=== PATIENT | female | born 1970 | race Caucasian/White ===

== ENCOUNTER 2024-03-22 06:07 | Emergency (ER) | payer OTHER, SELFPAY ==
[2024-03-22 06:08] VITALS: BP 227/120
[2024-03-22 06:30] VITALS: BP 158/96; BMI 43.4
--- NOTE | 2024-03-22 06:33 | EDRN ---
Pt has not been feeling well x 1 week - watery eyes, stuffy head. Pt took tylenol which got rid of her headache. Pt has been taking Dayquil. Pt woke this morning with watery eyes and 'gunk coming out' of her eyes. Pt blew her nose and noted
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 Pt denies nose bleed - blood only on tissue which prompted pt's visit to ED. Pt did not take her bp this morning. Pt
last took her BP at bedtime and says it was 145/87. Pt denies headache now, cp, sob, abd pain, n/v, fever/chills/cough, urinary symptoms, weakness, dizziness.
--- NOTE | 2024-03-22 07:16 | ED.GENMED ---
History of Present Illness
General
Chief Complaint: Blood Pressure Problem
Time Seen by Provider: 03/22/24 07:09
Travel History
Have you had any contact with someone who has COVID-19?: No
Do you have any symptoms of coronavirus? Fever > 100 degrees, chills, cough, shortness of breath, sore throat, loss of taste or smell, muscle aches, or headache?: No
History of Present Illness
History of Present Illness:
53-year-old female with history of hypertension presents to the emergency department for evaluation of persistent facial pressure and nasal discharge over the past week. Her main concern is that she awoke today with copious amount of bloody
discharge from both naris. Denies any fevers, chills, or night sweats. Also notes bilateral eye redness left greater than right. No vision changes or eye pain. No chest pain, coughing, or shortness of breath. Has been using [id number]
DayQuil on a routine basis throughout the past week
Past History
Past History
ED Past Medical History: HTN
ED Past Surgical History: None
Social History
Tobacco: Non-smoker
Alcohol: None
Review of Systems
Review of Systems
Allergies reviewed?: Yes
All Other Systems: ROS reviewed and negative except as documented in HPI and ROS
Phy Exam
Physical Exam
Physical Exam:
GEN: Well appearing, NAD, WDWN
HEENT: Oral mucosa moist, no scleral icterus. Bilateral conjunctival injection, left greater than right, no purulent discharge, normal extraocular motion, no hyphema or hypopyon bilaterally. TMs clear without erythema bilaterally. Bilateral
maxillary sinus tenderness noted. Dried blood to Kiesselbach's plexus bilateral naris, no active bleeding
Cardiac: Regular rate and rhythm, no murmurs
Lung: No respiratory distress, no tachypnea, lungs clear to auscultation bilaterally
MSK: No gross deformity or injuries
Skin: Good color, no pallor or jaundice, no rashes
Neuro: AO x3, moves all extremities freely
Psych: Calm, cooperative
Course
Vital Signs
Initial and Last Documented VS:
Initial Vital Signs
Temp Pulse Resp BP Pulse Ox
98.4 F 66 22 227/120 100
03/22/24 06:08 03/22/24 06:08 03/22/24 06:08 03/22/24 06:08 03/22/24 06:08
Last Documented Vital Signs
Temp Pulse Resp BP Pulse Ox
98.3 F 68 14 167/94 99
03/22/24 07:26 03/22/24 07:26 03/22/24 07:26 03/22/24 07:26 03/22/24 07:26
MDM/Problems Addressed
MDM/Problems Addressed:
Patient with persistent URI symptoms and sinus pressure for 1 week. Given duration of symptoms we will treat empirically with antibiotics, topical antibiotics will be provided although likely etiology for conjunctivitis is viral. She is markedly
hypertensive on arrival, gradually downtrending in the emergency department without antihypertensives. She does have underlying hypertension and is on high doses of multiple medications, advised to avoid DayQuil and other similar decongestants
going forward as this likely contributed to her marked blood pressure elevation.
*Critical Care Note
Total Time (30-74mins, 75-104mins- exclusive of procedures): Not Applicable
ED Attending Note
-
Portions of this chart may have been created with voice recognition software.� Occasional wrong word or��sound alike� substitutions may have occurred due to the inherent limitations of voice recognition software.
Discharge Plan
Departure
Patient Disposition: Home (Routine Discharge)
Date of Disposition: 03/22/24
Time of Disposition: 07:20
Patient with high blood pressure during this ER visit?: Yes
Discharge Problem:
Sinusitis, acute, Acute conjunctivitis, bilateral
Instructions: Sinusitis, Adult ED
Prescriptions:
New
azithromycin [Zithromax] 250 mg tablet
250 mg PO DAILY Qty: 6 0RF
Rx Instructions:
500mg PO day 1 then 250mg po qd x 4d
polymyxin B sulf-trimethoprim 10,000 unit- 1 mg/mL drops
1 drp ophthalmic (eye) QID 5 Days Qty: 10 0RF
No Action
omeprazole 40 MG capsule,delayed release(DR/EC)
40 mg PO DAILY
metoprolol succinate 100 mg Tablet Extended Release 24 Hr
100 mg PO DAILY
aspirin 81 mg Tablet,Delayed Release (Dr/Ec)
81 mg PO DAILY
lisinopril 30 mg Tablet
30 mg PO DAILY
Interventions
Interventions:
*Risk Screen - Suicide Last Done: 03/22/24 06:08
*General Assessment Last Done: 03/22/24 06:30
*Neglect/Abuse Screening Last Done: 03/22/24 06:08
ED- Fall Risk Assessment Last Done: 03/22/24 07:26
*ED COVID-19 Vaccine History Last Done: 03/22/24 06:30
*Nursing Disposition Last Done: 03/22/24 07:26
ED- Cardiac Assessment Last Done: 03/22/24 06:30
ED- Neurological Assessment Last Done: 03/22/24 06:30
ED- Pulmonary Assessment Last Done: 03/22/24 06:30
Discharge Date and Time
Discharge Date/Time: 03/22/24 07:32
Print Language: CHINESE
[2024-03-22 07:18] VITALS: BP 167/94
[2024-03-22 07:26] VITALS: BP 167/94
== END 2024-03-22 07:32 | disposition home or self-care (01) ==
LOC: EMR 06:07
PROVIDERS: EMERGENCY PHYSICIAN Emergency Medicine; FAMILY PHYSICIAN Physician Assistant Medical
DX: J01.90 Acute sinusitis, unspecified (principal); H10.33 Unspecified acute conjunctivitis, bilateral; I10 Essential (primary) hypertension
CPT/HCPCS: 99283

== ENCOUNTER → 2024-09-07 06:52 | Outpatient (REF) | payer OTHER, SELFPAY | LOC: RCS 06:52 | PROVIDERS: ATTENDING PHYSICIAN Internal Medicine Cardiovascular Disease; FAMILY PHYSICIAN Physician Assistant Medical | DX: I10 Essential (primary) hypertension (principal); R94.31 Abnormal electrocardiogram [ECG] [EKG] | CPT/HCPCS: 93306 ==

== ENCOUNTER 2024-10-11 06:22 | Day surgery (SDC) | payer OTHER, SELFPAY ==
[2024-10-11 09:10] VITALS: BMI 44.2
[2024-10-11 09:15] VITALS: BMI 44.2
[2024-10-11 09:18] VITALS: BP 130/88
[2024-10-11 10:53] VITALS: BP 124/81
[2024-10-11 11:00] VITALS: BP 121/83
[2024-10-11 11:15] VITALS: BP 132/73
== END 2024-10-11 11:25 | disposition home or self-care (01) ==
LOC: SDS 06:22
PROVIDERS: ATTENDING PHYSICIAN Internal Medicine Gastroenterology
DX: D50.9 Iron deficiency anemia, unspecified (principal); K57.30 Diverticulosis of large intestine without perforation or abscess without bleeding; K64.8 Other hemorrhoids; K44.9 Diaphragmatic hernia without obstruction or gangrene; K31.7 Polyp of stomach and duodenum; K31.89 Other diseases of stomach and duodenum; K29.50 Unspecified chronic gastritis without bleeding
CPT/HCPCS: 45378; 43239; 88305; 88342

== ENCOUNTER 2025-04-10 11:32 | Emergency (ER) | payer OTHER, SELFPAY ==
[2025-04-10 11:35] VITALS: BP 190/97
--- NOTE | 2025-04-10 13:18 | ED.GENMED ---
History of Present Illness
General
Chief Complaint: Nose Bleed
Source: patient
Exam Limitations: none
Time Seen by Provider: 04/10/25 12:40
Nursing documentation reviewed up to this point in time: agreed with
History of Present Illness
History of Present Illness:
54 yo female w h/o GERD, HTN, brain aneurysm states she had 5 minute nose bleeds 2am, 10:30 am, 11 am today. No bleeding past two hours. Initially from left side of nose then right.
She was afraid it may have something to do with her brain aneurysm.
Past History
Past History
ED Past Medical History: HTN
ED Past Surgical History: None
Social History
Tobacco: Non-smoker
Alcohol: None
Personal:
Living: alone
Employment: Employed
Review of Systems
Review of Systems
Allergies reviewed?: Yes
All Other Systems: ROS reviewed and negative except as documented in HPI and ROS
EENT: Reports other (nose bleed x 3 today for 5 minutes each)
ABD/GI: Denies nausea
Neurological: Denies dizzy
Phy Exam
Physical Exam
Physical Exam:
GENERAL: No acute distress. A&Ox3.
CONSTITUTIONAL: Afebrile.
EYES: clear, conjunctivae normal
ENMT: moist mucus membranes, Pharynx nl. No active bleeding, tiny areas of fresh blood on medial aspect of each nostril.
RESPIRATORY: Regular respirations, nonlabored, lungs clear.
CARDIOVASCULAR: Regular rate and rhythm, no murmurs, no rubs.
MUSCULOSKELETAL: Moves with ease. Well perfused.
SKIN: Warm, dry, pink
PSYCH: Normal mood and affect. Well kept, interactive and appropriate
NEUROLOGIC: Awake, alert and oriented. No focal neurological deficits
Course
Vital Signs
Initial and Last Documented VS:
Initial Vital Signs
Temp Pulse Resp BP Pulse Ox
98.4 F 76 18 190/97 99
04/10/25 11:35 04/10/25 11:35 04/10/25 11:35 04/10/25 11:35 04/10/25 11:35
Last Documented Vital Signs
Temp Pulse Resp BP Pulse Ox
98.4 F 84 16 165/95 99
04/10/25 11:35 04/10/25 13:39 04/10/25 13:39 04/10/25 13:39 04/10/25 13:39
Procedures
Nosebleed
Drug treatment: Lidocaine and Epinephrine
Treatment: Silver nitrate cautery
Post treatment bleeding: none- good control
MDM/Problems Addressed
MDM/Problems Addressed:
54 yo female w h/o GERD, HTN, brain aneurysm states she had 5 minute nose bleeds 2am, 10:30 am, 11 am today. No bleeding past two hours. Initially from left side of nose then right.
She was afraid it may have something to do with her brain aneurysm.
Although no active bleeding, pt would like the areas cauterized. This was done.
*Critical Care Note
Total Time (30-74mins, 75-104mins- exclusive of procedures): Not Applicable
ED Attending Note
-
Portions of this chart may have been created with voice recognition software.� Occasional wrong word or��sound alike� substitutions may have occurred due to the inherent limitations of voice recognition software.
Discharge Plan
Departure
Patient Disposition: Home (Routine Discharge)
Date of Disposition: 04/10/25
Time of Disposition: 13:28
Patient with high blood pressure during this ER visit?: No
Condition: Good
Discharge Problem:
Epistaxis
Instructions: Nosebleeds (DC)
Prescriptions:
No Action
omeprazole 40 MG capsule,delayed release(DR/EC)
40 mg PO DAILY
metoprolol succinate 100 mg Tablet Extended Release 24 Hr
100 mg PO DAILY
aspirin 81 mg Tablet,Delayed Release (Dr/Ec)
81 mg PO DAILY
lisinopril 30 mg Tablet
30 mg PO DAILY
amlodipine 5 mg Tablet
5 mg PO DAILY
Sutab 1.479-0.188- 0.225 gram Tablet
0 tab PO PER PKG DIR
Referrals:
Zoraida Muniz PA-C [Family Provider, Family Practice]
Activity Restrictions/Additional Instructions:
As we discussed, if your nosebleeds again, hold pressure on it for 15 minutes straight for 3 times in a row as needed. If it continues to bleed then you just need to come back in.
Interventions
Interventions:
*Risk Screen - Suicide Last Done: 04/10/25 11:35
*General Assessment Last Done: 04/10/25 11:35
*Neglect/Abuse Screening Last Done: 04/10/25 11:35
*ED- Fall Risk Assessment Last Done: 04/10/25 12:38
*Nursing Disposition Last Done: 04/10/25 13:39
ED-EENT Assessment Last Done: 04/10/25 12:38
Discharge Date and Time
Discharge Date/Time: 04/10/25 13:40
Print Language: WOLOF
[2025-04-10 13:39] VITALS: BP 165/95
== END 2025-04-10 13:40 | disposition home or self-care (01) ==
LOC: EMR 11:32
PROVIDERS: EMERGENCY PHYSICIAN Emergency Medicine; FAMILY PHYSICIAN Physician Assistant Medical
DX: R04.0 Epistaxis (principal); I10 Essential (primary) hypertension; K21.9 Gastro-esophageal reflux disease without esophagitis
CPT/HCPCS: 99282; 30901

== ENCOUNTER 2025-10-08 07:24 | Emergency (ER) | payer OTHER, SELFPAY ==
[2025-10-08 07:33] VITALS: BP 162/102
--- NOTE | 2025-10-08 09:52 | ED.GENMED ---
History of Present Illness
General
Chief Complaint: Nose Bleed
Source: patient and spouse
Time Seen by Provider: 10/08/25 08:13
History of Present Illness
History of Present Illness:
Note:
CHIEF COMPLAINT(S)
Nosebleed
HISTORY OF PRESENT ILLNESS
The patient is a 55-year-old female who presented with a chief complaint of a nosebleed. The episode began approximately 40 minutes prior to her presentation and lasted for about 40 minutes. She reports that the bleeding started after blowing her
nose due to congestion. At home, she attempted to stop the bleeding by pinching her nose and tipping her head back but was uncertain of the correct technique. The patient mentioned having a similar episode earlier in the week on Friday, which
resolved quickly. The patient expressed concern about the nosebleed and its potential relation to brain bleeding, which was clarified as unrelated.
The patient is currently feeling well, with no symptoms of headaches or other discomfort. She is concerned about the volume of blood lost, describing it as clots. She reports using aspirin but no other blood-thinning medications.
During the visit, it was explained to the patient that the appropriate technique to manage anterior nosebleeds involves pinching the soft part of the nostrils and leaning forward to prevent swallowing blood. It was recommended to hold the nose for a
full 10-15 minutes. The discussion also covered the importance of a humidifier or nasal saline sprays to prevent drying of the nasal mucosa during the winter months.
PHYSICAL EXAM
General: Alert, no acute distress. Hypertensive during exam
Skin: Warm, dry.
Head: Normocephalic, atraumatic.
Neck: Supple, trachea midline.
Eye, Ears, Nose, Mouth, and Throat: Small area noted on the Left septum where she was recently bleeding, but no active bleeding. Oral mucosa moist.
Cardiovascular: Normal peripheral perfusion, No edema.
Respiratory: Respirations are non-labored.
Gastrointestinal: Abdomen nondistended.
Back: Normal range of motion, normal alignment.
Musculoskeletal: Normal ROM, normal strength.
Neurological: Alert and oriented to person, place, time, and situation, No focal neurological deficit observed.
Psychiatric: Cooperative, appropriate mood & affect.
PROBLEM LIST
Acute:
1. Anterior epistaxis (nosebleed)
2. Uncontrolled hypertension
Chronic:
1. Hypertension
PLAN
1. Observe the patient for 15-20 minutes to ensure no recurrent bleeding.
2. Provide the patient with a nasal clip to use if the bleeding occurs again.
3. Advise the use of a cool-mist humidifier and nasal saline sprays to maintain mucosal moisture.
4. Consider applying a thin layer of Vaseline to the nasal septum after the area has healed to prevent dryness.
5. Educate the patient on proper technique for managing nosebleeds at home.
6. Follow up if recurrent or prolonged episodes occur.
DIFFERENTIAL DIAGNOSIS
The Differential Diagnosis includes, in no particular order and is not limited to:
1. Anterior epistaxis
2. Posterior epistaxis
3. Rhinitis
4. Hypertension-induced epistaxis
5. Coagulopathy
6. Dry air-induced mucosal irritation
7. Nasal trauma
8. Use of blood-thinning medication (aspirin)
9. Foreign body in the nasal passage
10. Nasal septal deviation or perforation
Disposition:
SUMMARY OF ENCOUNTER
The patient is a 55-year-old female who presented to the emergency department with epistaxis that started after blowing her nose due to congestion. The bleeding episode lasted for about 40 minutes and resolved before her arrival at the emergency
department. At home, the patient incorrectly applied pressure at the bridge of the nose instead of pinching the soft part of the nostrils. Upon examination, no active bleeding was observed, and the patient was observed in the emergency department
without the need for intervention.
ASSESSMENT
The patient experienced an episode of anterior epistaxis which self-resolved. It is likely related to dry air-induced mucosal irritation and possible aspirin use.
PLAN
1. Observe the patient for 15-20 minutes to ensure no recurrent bleeding.
2. Provide a nasal clip for future use if bleeding occurs again.
3. Advise the use of a cool-mist humidifier and nasal saline sprays to maintain mucosal moisture.
4. Consider applying a thin layer of Vaseline to the nasal septum after healing to prevent dryness.
5. Educate the patient on proper technique for managing nosebleeds at home.
PATIENT EDUCATION AND COUNSELING
The patient was counseled on the correct technique for managing anterior epistaxis at home, including pinching the soft part of the nostrils, leaning forward, and holding the pressure for a full 10-15 minutes. She was advised on the use of Vaseline
or nasal saline to maintain nasal moisture and to humidify the air at home to prevent further episodes.
FOLLOW-UP INSTRUCTIONS
Follow-up as an outpatient is recommended, particularly if there are recurrent or prolonged episodes of epistaxis.
MEDICATION RECONCILIATION
The patient reports using aspirin but no other blood-thinning medications.
MEDICAL DECISION MAKING
-Complexity of Data Reviewed: Chronic conditions affecting care. Differential diagnosis includes anterior epistaxis, posterior epistaxis, rhinitis, hypertension-induced epistaxis, coagulopathy, dry air-induced mucosal irritation, nasal trauma, use
of blood-thinning medication (aspirin), foreign body in the nasal passage, nasal septal deviation or perforation.
-Risk: Given the simple case of self-resolving anterior epistaxis, outpatient management is deemed safe. Consideration of admission/observation was assessed but not necessary. Prescription drug management involving aspirin monitoring and future
avoidance guidance was discussed.
DIAGNOSIS
Anterior epistaxis (R04.0)
Uncontrolled hypertension
Past History
Past History
ED Past Medical History: HTN
ED Past Surgical History: None
Social History
Tobacco: Non-smoker
Alcohol: None
Personal:
Living: alone
Employment: Employed
Phy Exam
Physical Exam
Physical Exam:
.
Course
Vital Signs
Initial and Last Documented VS:
Initial Vital Signs
Temp Pulse Resp BP Pulse Ox
98.6 F 69 18 162/102 98
10/08/25 07:33 10/08/25 07:33 10/08/25 07:33 10/08/25 07:33 10/08/25 07:33
Last Documented Vital Signs
Temp Pulse Resp BP Pulse Ox
98.6 F 69 18 162/102 98
10/08/25 07:33 10/08/25 07:33 10/08/25 07:33 10/08/25 07:33 10/08/25 07:33
*Pulse Oximetry
SaO2: 98
Oxygen Mode of Delivery: Room air
Patient hypoxic: no
*Critical Care Note
Total Time (30-74mins, 75-104mins- exclusive of procedures): Not Applicable
ED Attending Note
-
Portions of this chart may have been created with voice recognition software.� Occasional wrong word or��sound alike� substitutions may have occurred due to the inherent limitations of voice recognition software.
Discharge Plan
Departure
Patient Disposition: Home (Routine Discharge)
Date of Disposition: 10/08/25
Time of Disposition: 09:52
Patient with high blood pressure during this ER visit?: Yes
Discharge Problem:
Acute anterior epistaxis, Uncontrolled hypertension
Instructions: Nosebleeds (DC), BLOOD PRESSURE
Prescriptions:
No Action
omeprazole 40 MG capsule,delayed release(DR/EC)
40 mg PO DAILY
metoprolol succinate 100 mg Tablet Extended Release 24 Hr
100 mg PO DAILY
aspirin 81 mg Tablet,Delayed Release (Dr/Ec)
81 mg PO DAILY
lisinopril 30 mg Tablet
30 mg PO DAILY
amlodipine 5 mg Tablet
5 mg PO DAILY
Sutab 1.479-0.188- 0.225 gram Tablet
0 tab PO PER PKG DIR
Referrals:
Zoraida Muniz PA-C [Family Provider, Internal Medicine]
Activity Restrictions/Additional Instructions:
Please use humidified air at night and consider use of Vaseline as discussed. Could also use saline nasal sprays to keep the mucosa moist. Return immediately for intractable nosebleeding, shortness of breath or any other concerns. If your
nosebleeds again please hold pressure as discussed. See your doctor in the next 1 week for follow-up and reevaluation. If nosebleeding is recurrent, ENT follow-up may also be necessary.
Interventions
Interventions:
*Risk Screen - Suicide Last Done: 10/08/25 07:33
*General Assessment Last Done: 10/08/25 07:33
*ED COVID-19 Vaccine History Last Done: 10/08/25 07:33
*ED Influenza Vaccine History Last Done: 10/08/25 07:33
ED-EENT Assessment Last Done: 10/08/25 07:45
Discharge Date and Time
Print Language: ITALIAN
[2025-10-08 09:55] VITALS: BP 153/94
== END 2025-10-08 10:00 | disposition home or self-care (01) ==
LOC: EMR 07:24
PROVIDERS: EMERGENCY PHYSICIAN Emergency Medicine; FAMILY PHYSICIAN Physician Assistant Medical
DX: R04.0 Epistaxis (principal); I10 Essential (primary) hypertension
CPT/HCPCS: 99282